=== PATIENT | female | born 1985 | race Caucasian/White ===

== ENCOUNTER 2017-03-13 00:40 | Inpatient (IN) | payer OTHER ==
[~2017-03-13] VITALS: Ht 170.2 cm; Wt 80.0 kg
[~2017-03-13 00:40] MED LIST: CLC100 PO; PRENTAB26 PO; PREPARATION H; [UNRECOGNIZED DRUG - CODE] PO
[2017-03-13 01:00] VITALS: Ht 170.2 cm; Wt 80.0 kg
[2017-03-13] MEDS ORDERED: LACTATED RINGER'S 1000ML 1,000 ML IV SCH (01:04)
[2017-03-13] MEDS ORDERED: LACTATED RINGER'S 1000ML 1,000 ML IV PRN (01:04)
[2017-03-13] MEDS ORDERED: LACTATED RINGER'S 1000ML 500 ML IV PRN ×2 (01:22→04:03)
[2017-03-13] MEDS ORDERED: OXYTOCIN 30 UNITS/500ML NSS IV PRN ×3 (01:30→17:00)
[2017-03-13 01:35] LABS: HEMATOCRIT 34.5 % (37-47); MEAN CELL VOLUME 90.1 fL (80-100); MEAN CORPUSCULAR HGB CONC 33.3 g/dl (32-36); MEAN PLATELET VOLUME 10.2 fL (7.4-10.4); PLATELET COUNT 184 K/uL (130-400); RED BLOOD COUNT 3.83 M/uL (4.2-5.4); WHITE BLOOD COUNT 8.72 K/uL (4.8-10.8)
[2017-03-13 01:53] LABS: BLOOD UREA NITROGEN 15 mg/dl (7-18); CALCIUM 8.5 mg/dl (8.5-10.1); CARBON DIOXIDE 20 mmol/L (21-32); CHLORIDE 107 mmol/L (98-107); GLUCOSE 110 mg/dl (70-99); POTASSIUM 3.6 mmol/L (3.5-5.1); SODIUM 134 mmol/L (136-145)
[2017-03-13 01:54] LABS: ALT/SGPT 31 U/L (12-78); AST/SGOT 22 U/L (15-37); BUN/CREATININE RATIO 22.3 (10-20); CREATININE 0.69 mg/dl (0.60-1.20)
[2017-03-13] MEDS ORDERED: POTASSIUM CHLORIDE 10 MEQ TABCR PO STA (01:56)
[2017-03-13 01:57] LABS: ALB/GLOB RATIO 0.6 (0.9-2); ALKALINE PHOSPHATASE 194 U/L (45-117)
[2017-03-13] MEDS ORDERED: BUPIVACAINE 0.25% 30 ML VIAL ONE (03:13)
[2017-03-13] MEDS ORDERED: FENTANYL 2MCG/ML ROPIV 1.25MG/ML 100ML BAG EPI ONE (03:13)
[2017-03-13] MEDS ORDERED: EpHEDrine SULFATE INJ 50 MG/ML AMP ONE (03:13)
[2017-03-13] MEDS ORDERED: FENTANYL CITRATE INJ 50 MCG/1 ML 2 ML VIAL ONE (03:14)
[2017-03-13] MEDS ORDERED: NALOXONE HCL INJ 1 MG in SODIUM CHLORIDE 0.9% 1000ML 1,000 ML IV PRN (04:03)
[2017-03-13] MEDS ORDERED: FENTANYL 2MCG/ML ROPIV 1.25MG/ML 100ML BAG EPI PRN ×2 (04:15→05:30)
[2017-03-13] MEDS ORDERED: DiphenhydrAMINE HCL 50 MG/ML VIAL IV PRN (04:15)
[2017-03-13] MEDS ORDERED: NALOXONE HCL INJ 0.4 MG/1 ML VIAL/CARP IV PRN (04:15)
[2017-03-13] MEDS ORDERED: NALBUPHINE HCL INJ 10 MG/ML AMP IV PRN (04:15)
[2017-03-13] MEDS ORDERED: EpHEDrine SULFATE INJ 50 MG/ML AMP IV PRN (04:15)
[2017-03-13] MEDS ORDERED: AMOXICILLIN/CLAVULANATE TAB 875 MG TAB PO ONE (05:20)
[2017-03-13] MEDS ORDERED: CEFD1CAP14 PO (05:22)
[2017-03-13] MEDS ORDERED: SERT1TAB72 PO (05:22)
[2017-03-13] MEDS ORDERED: PRENTAB26 PO (05:22)
--- NOTE | 2017-03-13 07:00 | INTERNAL MEDICINE CONSULTATION ---
DATE OF CONSULTATION: 03/13/2017 PRIMARY CARE DOCTOR: Dr. Kevin Oneal. Patient seen at the request of Dr. Kramer for evaluation of bradycardia , medical management. Patient currently admitted under OB service for induction of labor. HISTORY OF PRESENT ILLNESS: Medical history significant for mood disorder. Patient currently admitted for induction of labor since yesterday after her bag of water broke. Heart rate noted to be 40s-50s. Patient denies chest pain, no unusual shortness of breath. Blood pressure stable. As per patient, usual heart rate in the 60s. Patient currently comfortable after epidural given. MEDICAL HISTORY: As above. Sinusitis infection that had led to otitis media the last 2 weeks. Initially started on Amoxicillin. Amoxicillin later switched to Ceftin, prednisone course. Some improvement. Patient continues to have bilateral ear fullness, sinus congestion, sore throat. Denies sneezing. No fever, no chills. SURGERIES: She has had dental surgery, adenoid surgery, vaginal delivery. HOME MEDICATIONS: Include cefdinir, prednisone, vitamins, sertraline, Sudafed. ALLERGIES: No known drug allergies. FAMILY HISTORY: Heart disease, diabetes, thyroid disease. PERSONAL AND SOCIAL HISTORY: Nonsmoker, no chronic intake of alcoholic beverages. Currently, a homemaker. REVIEW OF SYSTEMS: As per HPI. All 10 systems reviewed, all other ROS negative. PHYSICAL EXAMINATION: VITAL SIGNS: Blood pressure was noted to be 120/50, pulse rate of 45, RR 12, temperature 98.4, sats 98 on 2 liters. GENERAL: Noted to be comfortable, no respiratory distress. SKIN: Pallor and warm. HEENT: Thorp palpebral conjunctivae, no ptosis, yellow pharyngeal congestion; Dull TMs, no obvious perforation, bilateral NECK: Supple. No tenderness. CHEST: Decreased breath sounds. HEART: Bradycardic. No murmur. ABDOMEN: Globular, nontender. EXTREMITIES: Minimal LE edema. No tenderness. No gross deformities. NEUROLOGIC: Coherent. No gross focality. LABORATORY DATA: Hemoglobin was noted to be 11, white blood cell count 8, platelets noted to be 184. Sodium 134, potassium 3.6, chloride 107, CO2 20, BUN 15, creatinine 0.6, glucose 110. EKG as per my interpretation, rate of 45, sinus bradycardia, first-degree AVblock. No ischemia, PRWP. ASSESSMENT: 1. Asymptomatic bradycardia First-degree AV block on EKG Increased vagal tone from ongoing labor. 2. Bacterial rhinosinusitis slow improvement with current Ceftin course. Recently completed outpatient steroid course No sepsis 3. Anemia on . Hemoglobin at baseline. RECOMMENDATIONS: No intervention/workup for asymptomatic bradycardia. Atropine 0.5 mg IV p.r.n. for hypotension. Replace ongoing Ceftin w/ Augmentin 875 mg by mouth twice a day (10 day course) for protracted bacterial sinusitis symptoms. Saline nasal spray, 2 sprays t.i.d. per nostril to improve sinus congestion/ ventilation. Thank you very much for this consultation. Dr. King will follow the patient's progress. MEGAN
[2017-03-13] MEDS ORDERED: SODIUM CHLORIDE 0.65% NA SOLN 45 ML (OCEAN) NAE SCH (08:00)
[2017-03-13] MEDS ORDERED: METHYLERGONOVINE MALEATE 0.2 MG/ML AMP ONE (08:52)
[2017-03-13] MEDS ORDERED: MISOPROSTOL 200 MCG TAB ONE (08:58)
[2017-03-13] MEDS ORDERED: ACETAMINOPHEN 325 MG TAB PO PRN (09:15)
[2017-03-13] MEDS ORDERED: HYDROCORTISONE ACETATE 25 MG SUPP PR PRN (09:15)
[2017-03-13] MEDS ORDERED: ACETAMINOPHEN/CODEINE 300/30MG TAB PO PRN (09:15)
[2017-03-13] MEDS ORDERED: SUPERCREAM 0.870 % 15GM JAR EXT PRN (09:15)
[2017-03-13] MEDS ORDERED: OXYCODONE/ACETAMINOPHEN 5-325 TAB PO PRN (09:15)
[2017-03-13] MEDS ORDERED: LANOLIN OINT EXT PRN ×2 (09:15)
[2017-03-13] MEDS ORDERED: METHYLERGONOVINE MALEATE 0.2 MG/ML AMP IM ONE ×2 (09:15→17:00)
[2017-03-13] MEDS ORDERED: BENZOCAINE 20% AER SPR 82.5 GM CAN EXT PRN (09:15)
[2017-03-13] MEDS ORDERED: MISOPROSTOL 200 MCG TAB PR SCH (09:15)
[2017-03-13] MEDS: IBUPROFEN 600 MG TAB PO PRN ×3 (09:24→21:12)
--- NOTE | 2017-03-13 09:28 | DELIVERY SUMMARY ---
DATE OF OPERATION: 03/13/2017 The patient delivered a live infant male in left occiput anterior presentation. There was no nuchal cord. Infant was delivered and placed on mother's abdomen. Cord was clamped, and after 1 minute, cord gas was obtained, cord blood was obtained as well. 's weight is pending. Apgars 8 and 9. Placenta was spontaneously delivered, inspection of the placenta shows a 3-vessel cord. Estimated blood loss is 500 mL. Inspection of the perineum showed no laceration or tears. Baby and mother are doing well in recovery. All instruments are removed from the vagina including retractors and sponges. I attest to the content of the Intraoperative Record and any orders documented therein. Any exception s are noted below.
--- NOTE | 2017-03-13 09:57 | Anesthesia Procedure Note ---
Anesthesia Epidural Removal Nt Date & Time Mar 13, 2017 at 09:57 Vital Signs Pain Intensity: 5.0 Notes Mental Status: alert / awake / arousable, participated in evaluation Nausea / Vomiting: adequately controlled Pain: adequately controlled Airway Patency, RR, SpO2: stable & adequate BP & HR: stable & adequate Hydration State: stable & adequate Neuraxial Anesthesia: was administered Anesthetic Complications: no major complications apparent, pt satisfied with anesthetic care Epidural: removed without complications, with tip intact
[2017-03-13] MEDS: ACETAMINOPHEN/CODEINE 300/30MG TAB PO PRN ×3 (11:05→21:12)
[2017-03-13 11:35] VITALS: BP 128/77; PULSE 61; TEMP 36.8; O2SAT 99
[2017-03-13 16:25] VITALS: BP 131/85; PULSE 65; TEMP 37
[2017-03-13] MEDS ORDERED: CARBOPROST TROMETHAMINE 250 MCG/ML AMP IM ONE (17:00)
[2017-03-13 17:10] LABS: HEMATOCRIT 35.8 % (37-47)
--- NOTE | 2017-03-13 17:36 | Progress Note ---
Progress Note Date of Service Mar 13, 2017. Progress Note OB Note Called to evaluate pt with heavy bleeding Pt delivered at 08;30HRS. was macrosomic and EBl was 500cc. she received Pitocin, Im Methergine and 100mcg of Cytotec Her nurse called me at about 17;00hrs and told me the pt reports changing a heavy saturated pad every hour she denies SOB, headache or light headedness. she denies feeling faint and has been able to use the bathroom every hour without difficulty O; T; 37, R16. P65. BP 131/85 Ht S1S2 R/R/R Lung ; CTA Bilat. No W/C/r ABD; Uterus is firm. 3BR above fundus Pel. Moderately soaked peripad. no clots Pelvic exam : No clots or increase in bleeding with fundal pressure ext No C/cE a/p Post bleeding Stat H/H ordered IV Pitocin restarted Methergine and Hemabate given Bedside US ordered
[2017-03-13] MEDS: OXYTOCIN INJ 20 UNITS in LACTATED RINGER'S 1000ML 1,000 ML IV SCH (17:41)
[2017-03-13 17:47] LABS: PROTHROMBIN TIME (PATIENT) 10.1 SECONDS (9.0-12.0)
[2017-03-13] MEDS: AMOXICILLIN/CLAVULANATE TAB 875 MG TAB PO SCH (17:50)
--- NOTE | 2017-03-13 17:50 | DIAGNOSTIC IMAGING REPORT ---
PELVIC COMPLETE NON OB HISTORY: 31 years-old Female s/p hemorrhage post vaginal bleeding COMPARISON: None available TECHNIQUE: Multiple real-time sonographic images of the deep pelvic structures were obtained transabdominally assessing grayscale appearance and color flow FINDINGS/IMPRESSION: Post appearance of the anteflexed uterus which appears enlarged and somewhat heterogeneous. Endometrium is thickened, 2.5 cm and heterogeneous which appears within normal limits considering state. No definite tissue with internal vascularity identified within the endocervical canal to suggest retained products of conception. The above report was generated using voice recognition software. It may contain grammatical, syntax or spelling errors. Electronically signed by: Jair Collins M.D. 03/13/2017 5:49 PM Dictated Date/Time: 03/13/2017 5:45 PM
[2017-03-13 18:00] VITALS: BP 154/96; PULSE 65
[2017-03-13 18:40] VITALS: BP 134/81; PULSE 64
--- NOTE | 2017-03-13 19:00 | Progress Note ---
Internal Med Progress Note Date of Service: Mar 13, 2017. Provider Documentation: patient resting comfortably. Feels better.Has some cough. Afebrile.Vitals stable. To continue Augmentin. f/u with PCP. ASSESSMENT & PLAN: [] DVT PROPHYLAXIS [] DISPOSITION [] Vital Signs: Date Time Temp Pulse Resp B/P (MAP) Pulse Ox O2 Delivery O2 Flow Rate FiO2 03/13/17 18:00 65 154/96 (115) 03/13/17 16:25 37.0 65 16 131/85 (100) Room Air 03/13/17 16:25 Room Air 03/13/17 11:35 36.8 61 16 128/77 (94) 99 Room Air Lab Results: Results Past 24 Hours Test 03/13/17 01:25 03/13/17 16:59 03/13/17 18:23 Range/Units White Blood Count 8.72 4.8-10.8 K/uL Red Blood Count 3.83 4.2-5.4 M/uL Hemoglobin 11.5 12.4 13.0 12.0-16.0 g/dL Hematocrit 34.5 35.8 38.0 37-47 % Mean Corpuscular Volume 90.1 80-100 fL Mean Corpuscular Hemoglobin 30.0 25-34 pg Mean Corpuscular Hemoglobin Concent 33.3 32-36 g/dl RDW Standard Deviation 42.3 36.4-46.3 fL RDW Coefficient of Variation 13.1 11.5-14.5 % Platelet Count 184 130-400 K/uL Mean Platelet Volume 10.2 7.4-10.4 fL Sodium Level 134 136-145 mmol/L Potassium Level 3.6 3.5-5.1 mmol/L Chloride Level 107 98-107 mmol/L Carbon Dioxide Level 20 21-32 mmol/L Anion Gap 7.0 3-11 mmol/L Blood Urea Nitrogen 15 7-18 mg/dl Creatinine 0.69 0.60-1.20 mg/dl Estimated GFR () 134.4 Estimated GFR (Non- 116.0 BUN/Creatinine Ratio 22.3 10-20 Random Glucose 110 70-99 mg/dl Calcium Level 8.5 8.5-10.1 mg/dl Magnesium Level 2.0 1.8-2.4 mg/dl Total Bilirubin 0.2 0.2-1 mg/dl Aspartate Amino Transf (AST/SGOT) 22 15-37 U/L Alanine Aminotransferase (ALT/SGPT) 31 12-78 U/L Alkaline Phosphatase 194 45-117 U/L Lactate Dehydrogenase 171 84-246 U/L Total Protein 6.1 6.4-8.2 gm/dl Albumin 2.4 3.4-5.0 gm/dl Globulin 3.7 2.5-4.0 gm/dl Albumin/Globulin Ratio 0.6 0.9-2 Lipase 205 73-393 U/L Thyroid Stimulating Hormone (TSH) 3.130 0.300-4.500 uIu/ml Prothrombin Time 10.1 9.0-12.0 SECONDS Prothromb Time International Ratio 1.0 0.9-1.1 Fibrinogen 416 184-400 mg/dl
--- NOTE | 2017-03-13 19:19 | Progress Note ---
Progress Note Date of Service Mar 13, 2017. Progress Note OB/Note Pt doing well Not feeling any worse, O; VSS. BP 150/80. pulse 67 Uterus; firm. fundal position unchanged since last exam Labs; stable H&H X2 US. No retained tissue seen in uterus Plan Continue to monitor pt NPO Bryant cath in place-
[2017-03-13 19:50] VITALS: BP 118/80; PULSE 60; TEMP 36.5; O2SAT 98
[2017-03-13] MEDS: DOCUSATE SODIUM 100 MG CAP PO SCH (19:51)
[2017-03-13] MEDS: SERTRALINE HCL 50 MG TAB PO SCH (19:51)
[2017-03-13 23:10] VITALS: BP 108/72; PULSE 65; TEMP 36.5; O2SAT 98
[2017-03-13 23:10] LABS: HEMATOCRIT 36.4 % (37-47)
[2017-03-14] MEDS: OXYTOCIN INJ 20 UNITS in LACTATED RINGER'S 1000ML 1,000 ML IV SCH (01:50)
[2017-03-14] MEDS: ACETAMINOPHEN/CODEINE 300/30MG TAB PO PRN ×2 (01:54→08:28)
[2017-03-14] MEDS: IBUPROFEN 600 MG TAB PO PRN ×3 (01:55→15:34)
[2017-03-14 03:30] VITALS: BP 100/56; PULSE 68; TEMP 36.4; O2SAT 97
[2017-03-14 07:19] VITALS: BP 95/57; PULSE 70; TEMP 36.6; O2SAT 97
--- NOTE | 2017-03-14 08:20 | OB/GYN Progress Note ---
REFUSE AND RECYCLING WORKER Progress Note Date of Service: Mar 14, 2017. Patient is seen and examined. She feels well, no complaints. Ambulated without dizziness Wilkins was placed after pp bleeding which was controlled with meds Tolerating regular diet with out N&V Bleeding is minimal No fever/ chills/ CP/ SOB/ N&V/ Leg pain Breast feeding without problems Date Time Temp Pulse Resp B/P (MAP) Pulse Ox O2 Delivery O2 Flow Rate FiO2 03/14/17 07:19 36.6 70 20 95/57 (70) 97 Room Air 03/14/17 03:30 36.4 68 16 100/56 (71) 97 Room Air 03/13/17 23:10 Room Air 03/13/17 23:10 36.5 65 16 108/72 (84) 98 Room Air 03/13/17 19:50 36.5 60 16 118/80 (93) 98 Room Air 03/13/17 19:50 Room Air 03/13/17 18:40 64 134/81 (98) 03/13/17 18:00 65 154/96 (115) 03/13/17 16:25 37.0 65 16 131/85 (100) Room Air 03/13/17 16:25 Room Air 03/13/17 11:35 36.8 61 16 128/77 (94) 99 Room Air Last 24 Hours Test 03/13/17 16:59 03/13/17 18:23 03/13/17 23:02 03/14/17 08:13 Hemoglobin 12.4 g/dL 13.0 g/dL 12.5 g/dL Hematocrit 35.8 % 38.0 % 36.4 % Prothrombin Time 10.1 SECONDS Prothromb Time International Ratio 1.0 Fibrinogen 416 mg/dl PE: General: Alert, orientedx3, NAD Abd: soft, NT, fundus firm, +1 above Umbilicus Perineum intact, Lochia rubra minimal Ext; NT, no edema Date Time Temp Pulse Resp B/P (MAP) Pulse Ox O2 Delivery O2 Flow Rate FiO2 03/14/17 07:19 36.6 70 20 95/57 (70) 97 Room Air 03/14/17 03:30 36.4 68 16 100/56 (71) 97 Room Air 03/13/17 23:10 Room Air 03/13/17 23:10 36.5 65 16 108/72 (84) 98 Room Air 03/13/17 19:50 36.5 60 16 118/80 (93) 98 Room Air 03/13/17 19:50 Room Air 03/13/17 18:40 64 134/81 (98) 03/13/17 18:00 65 154/96 (115) 03/13/17 16:25 37.0 65 16 131/85 (100) Room Air 03/13/17 16:25 Room Air 03/13/17 11:35 36.8 61 16 128/77 (94) 99 Room Air AP: 31 yo s/p , ppd# 1 VSS Afebrile doing well s/p pp bleeding, controlled with meds H&H stable UOP good Will d/c wilkins, ambulate Continue routine care All questions were answered D/C home tomorrow
[2017-03-14] MEDS: FERROUS SULFATE 325 MG TAB PO SCH (08:29)
[2017-03-14] MEDS: AMOXICILLIN/CLAVULANATE TAB 875 MG TAB PO SCH ×2 (08:29→17:23)
[2017-03-14] MEDS: PRENATAL VITAMIN TAB PO SCH (08:29)
[2017-03-14] MEDS: DOCUSATE SODIUM 100 MG CAP PO SCH ×2 (08:29→20:03)
[2017-03-14 08:44] LABS: BASO % 0.1 %; BASO ABS # 0.01 K/uL (0-0.2); COMPLETE YES; EOS % 0.4 %; HEMATOCRIT 33.6 % (37-47); IG% 0.4 %; LYMPH % 15.3 %; LYMPH ABS # 1.41 K/uL (1.2-3.4); MEAN CELL VOLUME 89.8 fL (80-100); MEAN CORPUSCULAR HEMOGLOBIN 30.5 pg (25-34); MEAN CORPUSCULAR HGB CONC 33.9 g/dl (32-36); MEAN PLATELET VOLUME 9.8 fL (7.4-10.4); MONO % 6.1 %; NEUT % 77.7 %; PLATELET COUNT 145 K/uL (130-400); RED BLOOD COUNT 3.74 M/uL (4.2-5.4); WHITE BLOOD COUNT 9.24 K/uL (4.8-10.8)
[2017-03-14 12:45] VITALS: BP 110/70; PULSE 73; TEMP 36.6; O2SAT 99
[2017-03-14 16:04] VITALS: BP 130/82; PULSE 71; TEMP 36.8; O2SAT 100
[2017-03-14] MEDS ORDERED: BISACODYL 5 MG TABEC PO SCH (20:00)
[2017-03-14] MEDS: SERTRALINE HCL 50 MG TAB PO SCH (20:03)
[2017-03-15 00:50] VITALS: BP 138/84; TEMP 36.7; O2SAT 98
[2017-03-15] MEDS: IBUPROFEN 600 MG TAB PO PRN ×2 (01:00→06:01)
[2017-03-15] MEDS ORDERED: BISACODYL 10 MG SUPP PR PRN (07:00)
[2017-03-15 07:14] VITALS: BP 105/58; PULSE 56; TEMP 36.5; O2SAT 99
[2017-03-15 07:18] LABS: HEMATOCRIT 33.1 % (37-47); MEAN CELL VOLUME 91.2 fL (80-100); MEAN CORPUSCULAR HEMOGLOBIN 30.3 pg (25-34); MEAN CORPUSCULAR HGB CONC 33.2 g/dl (32-36); MEAN PLATELET VOLUME 9.7 fL (7.4-10.4); PLATELET COUNT 174 K/uL (130-400); RED BLOOD COUNT 3.63 M/uL (4.2-5.4)
[2017-03-15] MEDS: FERROUS SULFATE 325 MG TAB PO SCH (08:46)
[2017-03-15] MEDS: PRENATAL VITAMIN TAB PO SCH (08:46)
[2017-03-15] MEDS: AMOXICILLIN/CLAVULANATE TAB 875 MG TAB PO SCH (08:46)
[2017-03-15] MEDS: DOCUSATE SODIUM 100 MG CAP PO SCH (08:46)
--- NOTE | 2017-03-15 09:25 | OB/GYN Progress Note ---
TESTER COMPRESSED GASES Progress Note Date of Service Mar 15, 2017. Subjective conversation w/ patient, physical exam Ambulation: ambulating normally Voiding: no voiding problems Passing Gas: Yes Diet Tolerance: Regular Diet Lochia: Moderate Feeding Type: Breast Feeding Review of Systems Constitutional: No fever, No chills, No sweats, No weight loss, No weakness, No fatigue, No problem reported Respiratory: No cough, No sputum, No wheezing, No shortness of breath, No dyspnea on exertion, No dyspnea at rest, No hemoptysis, No problem reported Cardiac: No chest pain, No orthopnea, No PND, No edema, No claudication, No palpitations, No problem reported Breast: No see HPI, No breast lump, No change in shape, No nipple discharge, No breast pain, No problem reported Abdomen: No pain, No nausea, No vomiting, No diarrhea, No constipation, No GI bleeding, No problem reported Female : No see HPI, No dysuria, No urinary frequency, No hematuria, No incontinence, No abnormal vaginal bleeding, No vaginal discharge, No problem reported Objective Vital Signs Date Time Temp Pulse Resp B/P (MAP) Pulse Ox O2 Delivery O2 Flow Rate FiO2 03/15/17 08:30 Room Air 03/15/17 07:14 36.5 56 18 105/58 (74) 99 Room Air 03/15/17 00:50 98 Room Air 03/15/17 00:50 36.7 16 138/84 (102) 98 Room Air 03/14/17 16:04 Room Air 03/14/17 16:04 36.8 71 18 130/82 (98) 100 Room Air 03/14/17 12:45 36.6 73 20 110/70 (83) 99 Room Air Physical Exam General Appearance: WELL-APPEARING, WD/WN, NO APPARENT DISTRESS Respiratory/Chest: chest non-tender, lungs clear, normal breath sounds, no respiratory distress Cardiovascular: regular rate, rhythm, no edema, no gallop, no JVD, no murmur Abdomen: normal bowel sounds, non tender, soft, no organomegaly Fundus: Firm Extremities: normal range of motion, non-tender, normal inspection, no pedal edema Laboratory Results Last 24 Hours Test 03/15/17 06:42 White Blood Count 7.20 K/uL Red Blood Count 3.63 M/uL Hemoglobin 11.0 g/dL Hematocrit 33.1 % Mean Corpuscular Volume 91.2 fL Mean Corpuscular Hemoglobin 30.3 pg Mean Corpuscular Hemoglobin Concent 33.2 g/dl RDW Standard Deviation 44.6 fL RDW Coefficient of Variation 13.5 % Platelet Count 174 K/uL Mean Platelet Volume 9.7 fL Assessment and Plan Day Number: 2 Continue Routine Care: PPD #1 Pt doing well Tolerating PO and Meds PPH- tx with meds stable labs and meds d/c home today
[2017-03-15] MEDS ORDERED: MTR600X PO (09:30)
--- NOTE | 2017-03-15 09:36 | Discharge Instructions ---
Discharge Instructions Date of Service Mar 15, 2017. Admission Reason for Admission: LABOR Discharge Discharge Diagnosis / Problem: Discharge Goals Goal(s): Routine recovery after delivery Activity Recommendations Activity Limitations: as noted below ACTIVITY RECOMMENDATIONS: * Gradual return to full activity over the next 2-3 weeks. * No lifting - nothing heavier than baby over the next 2-3 weeks. * Do not engage in vigorous exercise, sexual activity or sports until cleared by your physician. * Do not drive or operate any motorized equipment until cleared by your physician. * You may shower/bathe daily. BREAST CARE: If you are not breast feeding: * Wear a supportive bra 24 hours a day for one to two weeks. * Avoid stimulating your breasts and nipples as much as possible during the first few weeks after delivery. * When taking a shower, have the warm water hit your back, not breasts. * When your breasts feel full, apply ice packs. Usually three to four times a day helps ease the discomfort. * Take a mild pain medication (Tylenol/Motrin) when you are uncomfortable. If breast feeding: * Use breast milk to lubricate nipples. Lansinoh cream may be used for sore nipples. You do not need to remove cream prior to breast feeding. If using a different brand of cream, check the label for directions regarding removal of cream prior to nursing. * Wear a supportive bra. * If having problems with breasts or breast feeding, call a netsuite consultant or your health care provider. EPISIOTOMY CARE: After delivery, if you have an episiotomy (stitches), the following steps will ease discomfort and aid healing. * For the first 24 hours after delivery, place ice packs next to your episiotomy to help reduce swelling. * After the first 24 hour-period, sitz baths, either portable or in the tub, are suggested. A shower with a shower arm sprayed over the episiotomy may be comforting. * Blanca care should be done after each voiding and bowel movement. Squirt warm water from a plastic bottle over the perineum (region of the body between the anus and urinary opening) and pat dry. * Use Dermoplast to ease discomfort. Shake container. [place] directly over the episiotomy. * Place a Tucks on a clean sanitary pad next to your episiotomy. OVER THE COUNTER MEDICATION: * For discomfort or pain, you may use Acetaminophen (Tylenol), Ibuprofen (Advil ), or Naproxen (Aleve) following the package directions. * For constipation you may use Colace following the package directions. SPECIAL CARE INSTRUCTIONS: When you are discharged from the hospital, it is important for you to follow the instructions listed below: * During the first week at home, you should be able to care for yourself and your baby. In addition, the usual light household activities are encouraged. * Limit your activities to the way you feel. Do not try to clean the house or move furniture. Be sensible. * If you actively engage in sports and have done so up until the time of your delivery, you may resume these activities as soon as you feel able. This may take up to one month or even longer. Use good judgment. * Continue to take your vitamins for at least six weeks after the of your baby. * Your diet need not be limited unless you were on a special diet before your delivery. Breast-feeding mothers need around 2500 calories per day and at least 64-80 ounces of fluid per day (8 to 10 glasses). * You should eat foods from the four major food groups. Crash diets or fad diets are to be avoided. Eating lean meats, fresh fruits and vegetables, low-fat dairy products, high fiber foods and a regular exercise program, will help you get back to your pre- weight without putting your health at risk. * Constipation is sometimes a problem after delivery. Take a mild laxative as needed. If breast feeding, Milk of Magnesia is acceptable to use. You may use a suppository or Fleets enema if no episiotomy. * A daily shower or tub bath is suggested. Be sure to thoroughly and gently dry the perineum. * A bloody vaginal discharge will usually continue until around four weeks post . A small amount of bleeding may continue for as long as six weeks. Vaginal discharge changes from the bright red bleeding after delivery to pink then brownish and finally yellowish-pink before becoming white and disappearing. * Bleeding may increase with activity. Your first period may come in 4-8 weeks. If you are breast feeding, your period may be delayed even longer. * [place] (sex) can begin whenever both you and your partner feel comfortable and do not have any form of genital infection. It is recommended that you wait until after your return appointment and discuss with your physician. If you have questions, please talk to your health care practitioner. A condom should be used to prevent infection and . * Foreplay, gentle intercourse and lubrication is very important the first several times to prevent pain. A water-based lubricant such as K-Y jelly or Astroglide may be used. * Tampons may be used six weeks after delivery. * Douching should be avoided for 6 weeks after delivery. * If you have RH negative blood and your baby is RH positive, you will receive RHOGAM by injection prior to discharge. The nurse will give you a card to keep with you that has the date and place that you received RHOGAM after delivery. * During your care, you had a Rubella screen done to check for the presence of rubella antibodies in your blood. If your test was negative, you will receive a Rubella vaccine prior to discharge. This vaccine may cause a fever, soreness at the injection site and flu-like symptoms. If these symptoms persist, notify your health care practitioner. is not advised for three months after a Rubella vaccine. There is a higher chance of having a baby with defects if conceived within three months of getting the vaccine. * If you were discharged 24 hours from delivery or before 48 hours: Visiting nurses will come to your home 48 hours after discharge to assess you and your baby. The visiting nurse will meet with you while you are in the hospital to arrange a time and get directions to your home. * Verbalizes understanding of car seat law as reviewed with patient nursing. * Car Seat hand-out given and reviewed with patient by nursing. * Shaken baby information reviewed with patient by nursing. Call you doctor if: * Heavy bleeding (saturating several pads an hour) or passing clots the size of your fist. * A fever >101 degrees F (38.3 degrees C) on two occasions four hours apart and/or chills. * Unusual pain in the pelvic or vaginal areas. * "Baby Blues" lasting longer than two weeks. If you have any questions or concerns, call your health care practitioner at . FOLLOW-UP VISIT: * Please call the office at to schedule a 6 week examination. It is important you keep this appointment. * It is important for you to make arrangements for either yearly or twice yearly check-ups thereafter. . Current Hospital Diet Patient's current hospital diet: Regular Diet Discharge Diet Recommended Diet: Regular Diet Pending Studies Studies pending at discharge: no Medical Emergencies . Who to Call and When: Medical Emergencies: If at any time you feel your situation is an emergency, please call 911 immediately. . Non-Emergent Contact Non-Emergency issues call your: Specialist . . "Provider Documentation" section prepared by Tommy Yuan. . VTE Core Measure Inpt VTE Proph given/why not?: Treatment not indicated
[2017-03-15 13:35] VITALS: BP_DIAS 58; PULSE 56; TEMP 36.5
== END 2017-03-15 13:35 | disposition home or self-care (01) | DRG 774 ==
LOC: C.LD 00:40 → C.OPB 00:40 → C.LD 01:05 → C.OPB 01:05 → C.OBG 12:13
PROVIDERS: ADMIT Obstetrics & Gynecology; ATTEND Obstetrics & Gynecology
PROC: 10E0XZZ Delivery of Products of Conception, External Approach (ICD-10-PCS; principal; 2017-03-13)
DX: O99.42 Diseases of the circulatory system complicating childbirth (principal); O72.1 Other immediate postpartum hemorrhage; R00.1 Bradycardia, unspecified; I44.0 Atrioventricular block, first degree; O99.52 Diseases of the respiratory system complicating childbirth; J01.90 Acute sinusitis, unspecified; O99.89 Other specified diseases and conditions complicating pregnancy, childbirth and the puerperium; H66.90 Otitis media, unspecified, unspecified ear; O99.02 Anemia complicating childbirth; D64.9 Anemia, unspecified; O99.344 Other mental disorders complicating childbirth; F32.9 Major depressive disorder, single episode, unspecified; Z3A.40 40 weeks gestation of pregnancy; Z37.0 Single live birth; Z79.899 Other long term (current) drug therapy; Z82.49 Family history of ischemic heart disease and other diseases of the circulatory system; Z83.3 Family history of diabetes mellitus; Z83.49 Family history of other endocrine, nutritional and metabolic diseases